=== PATIENT | male | born 1950 | race Caucasian/White ===

== ENCOUNTER 2022-06-13 17:48 | Emergency (ER) | payer OTHER ==
--- OUTSIDE RECORDS SUMMARY | 2022-06-13 17:52 | XMS REPORT | Continuity of Care Document ---
:1950 Author Organization [facility] t Address [address] [place] [address] [address]. [address] [place] [address] Care Team Providers Name Role Phone Sebastian Herron Attending Clinician Unavailable River Simpson Attending Clinician Payers Payer Name Policy Type Policy Number Effective Date Expiration Date [place] [address] [id number] Common HEALTHCARE [facility] - [facility] Problems Condition Condition Condition Status Onset Resolution Last Treating Co mments Source Name Details Category Date Date Treatment Clinician Date [id number] Acute pain Problem C ommon of right Spirit knee - [facility] [id number] Complex Problem Commo n tear of Spirit lateral - [facility] meniscus [facility] of right [facility] knee as Medical current Center injury, subsequent encounter [id number] Sprain of Problem Co mmon [id number] medial Spirit collateral - [facility] ligament [facility] of right [facility] knee, Medical subsequent Center encounter [id number] Closed Problem Common fracture Spirit of right - [facility] tibial St plateau [facility] with Medical routine Center healing, subsequent encounter [id number] 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[facility] joints, St unspecifie [facility] d Medical osteoarthr Center itis type [id number] Unspecifie Problem Com mon d urinary Spirit incontinen - [facility] ce [facility] [id number] Full Problem Commo n [id number] incontinen Spirit ce of - [facility] feces [facility] [id number] Pain, [place] [id number] joint, Spirit knee, - [facility] right [facility] Allergies, Adverse Reactions, Alerts Allergy Allergy Status Severity Reaction(s) Onset Inactive Treating Comm ents Source Name Type Date Date Clinician penicill penicill Active Unknown Commo n in V in V [facility] Social History Social Habit Start Date Stop Date Quantity Comments Source History of Tobacco Use Co mmon [facility] Sex Assigned At Com mon [facility] Smoking Status Start Date Stop Date Source Former Smoker 2022-04-24 00:00:00 2022-04-24 00:00:00 Common S pirit [facility] Medications Ordered Filled Start Stop Current Ordering Indication Dosage Frequency Signature Comments Components Source Medication Medication Date Date Medication? Clinician (SIG) Name Name Lisinopril Lisinopril No Lisinopril 20 MG 20 MG 20 MG Tumersaid Tumersaid No Tumersaid Melatonin Melatonin No 1{table QD Melatonin 10 MG 10 MG t_at_be 10 MG dtime_a s_neede d} Lisinopril Lisinopril No 1{table BID Lisinopril 20 MG 20 MG t} 20 MG Lisinopril Lisinopril No Lisinopril 20 MG 20 MG 20 MG Tumersaid Tumersaid No Tumersaid diphenhydrA diphenhydrA No 2{table QD diphenhydr MINE HCl 25 MINE HCl 25 ts_at_b AMINE HCl MG MG edtime_ 25 MG as_need ed} Loperamide Loperamide No Loperamide HCl HCl HCl diphenhydrA diphenhydrA No 2{table QD diphenhydr MINE HCl 25 MINE HCl 25 ts_at_b AMINE HCl MG MG edtime_ 25 MG as_need ed} Lisinopril Lisinopril No Lisinopril 20 MG 20 MG 20 MG Lisinopril Lisinopril No 1{table BID Lisinopril 20 MG 20 MG t} 20 MG Tumersaid Tumersaid No Tumersaid Melatonin Melatonin No 1{table QD Melatonin 10 MG 10 MG t_at_be 10 MG dtime_a s_neede d} Loperamide Loperamide No Loperamide HCl HCl HCl diphenhydrA diphenhydrA No 2{table QD diphenhydr MINE HCl 25 MINE HCl 25 ts_at_b AMINE HCl MG MG edtime_ 25 MG as_need ed} Lisinopril Lisinopril No Lisinopril 20 MG 20 MG 20 MG Lisinopril Lisinopril No 1{table BID Lisinopril 20 MG 20 MG t} 20 MG Tumersaid Tumersaid No Tumersaid Melatonin Melatonin No 1{table QD Melatonin 10 MG 10 MG t_at_be 10 MG dtime_a s_neede d} Loperamide Loperamide No Loperamide HCl HCl HCl diphenhydrA diphenhydrA No 2{table QD diphenhydr MINE HCl 25 MINE HCl 25 ts_at_b AMINE HCl MG MG edtime_ 25 MG as_need ed} Lisinopril Lisinopril No Lisinopril 20 MG 20 MG 20 MG Lisinopril Lisinopril No 1{table BID Lisinopril 20 MG 20 MG t} 20 MG Tumersaid Tumersaid No Tumersaid Melatonin Melatonin No 1{table QD Melatonin 10 MG 10 MG t_at_be 10 MG dtime_a s_neede d} Loperamide Loperamide No Loperamide HCl HCl HCl diphenhydrA diphenhydrA No 2{table QD diphenhydr MINE HCl 25 MINE HCl 25 ts_at_b AMINE HCl MG MG edtime_ 25 MG as_need ed} Melatonin Melatonin No 1{table QD Melatonin 10 MG 10 MG t_at_be 10 MG dtime_a s_neede d} Tumersaid Tumersaid No Tumersaid Lisinopril Lisinopril No Lisinopril 20 MG 20 MG 20 MG Lisinopril Lisinopril No 1{table BID Lisinopril 20 MG 20 MG t} 20 MG Loperamide Loperamide No Loperamide HCl HCl HCl diphenhydrA diphenhydrA No 2{table QD diphenhydr MINE HCl 25 MINE HCl 25 ts_at_b AMINE HCl MG MG edtime_ 25 MG as_need ed} Melatonin Melatonin No 1{table QD Melatonin 10 MG 10 MG t_at_be 10 MG dtime_a s_neede d} Tumersaid Tumersaid No Tumersaid Lisinopril Lisinopril No Lisinopril 20 MG 20 MG 20 MG Lisinopril Lisinopril No 1{table BID Lisinopril 20 MG 20 MG t} 20 MG Loperamide Loperamide No Loperamide HCl HCl HCl Lisinopril Lisinopril No Lisinopril 20 MG 20 MG 20 MG Tumersaid Tumersaid No Tumersaid Loperamide Loperamide No Loperamide HCl HCl HCl diphenhydrA diphenhydrA No 2{table QD diphenhydr MINE HCl 25 MINE HCl 25 ts_at_b AMINE HCl MG MG edtime_ 25 MG as_need ed} Lisinopril Lisinopril No 1{table BID Lisinopril 20 MG 20 MG t} 20 MG Melatonin Melatonin No 1{table QD Melatonin 10 MG 10 MG t_at_be 10 MG dtime_a s_neede d} Lisinopril Lisinopril No BID Lisinopril 20 MG 20 MG 20 MG Tumersaid Tumersaid No Tumersaid Loperamide Loperamide No Loperamide HCl HCl HCl diphenhydrA diphenhydrA No 2{table QD diphenhydr MINE HCl 25 MINE HCl 25 ts_at_b AMINE HCl MG MG edtime_ 25 MG as_need ed} Lisinopril Lisinopril No 1{table BID Lisinopril 20 MG 20 MG t} 20 MG Melatonin Melatonin No 1{table QD Melatonin 10 MG 10 MG t_at_be 10 MG dtime_a s_neede d} Melatonin Melatonin No 1{table QD Melatonin 10 MG 10 MG t_at_be 10 MG dtime_a s_neede d} Lisinopril Lisinopril No 1{table BID Lisinopril 20 MG 20 MG t} 20 MG diphenhydrA diphenhydrA No 2{table QD diphenhydr MINE HCl 25 MINE HCl 25 ts_at_b AMINE HCl MG MG edtime_ 25 MG as_need ed} Lisinopril Lisinopril No Lisinopril 20 MG 20 MG 20 MG Tumersaid Tumersaid No Tumersaid Loperamide Loperamide No Loperamide HCl HCl HCl Melatonin Melatonin No 1{table QD Melatonin 10 MG 10 MG t_at_be 10 MG dtime_a s_neede d} Lisinopril Lisinopril No Lisinopril 20 MG 20 MG 20 MG Loperamide Loperamide No Loperamide HCl HCl HCl Tumersaid Tumersaid No Tumersaid diphenhydrA diphenhydrA No 2{table QD diphenhydr MINE HCl 25 MINE HCl 25 ts_at_b AMINE HCl MG MG edtime_ 25 MG as_need ed} Melatonin Melatonin No 1{table QD Melatonin 10 MG 10 MG t_at_be 10 MG dtime_a s_neede d} Lisinopril Lisinopril No 1{table BID Lisinopril 20 MG 20 MG t} 20 MG Lisinopril Lisinopril No Lisinopril 20 MG 20 MG 20 MG Loperamide Loperamide No Loperamide HCl HCl HCl Tumersaid Tumersaid No Tumersaid diphenhydrA diphenhydrA No 2{table QD diphenhydr MINE HCl 25 MINE HCl 25 ts_at_b AMINE HCl MG MG edtime_ 25 MG as_need ed} Loperamide Loperamide No Loperamide HCl HCl HCl diphenhydrA diphenhydrA No 2{table QD diphenhydr MINE HCl 25 MINE HCl 25 ts_at_b AMINE HCl MG MG edtime_ 25 MG as_need ed} Lisinopril Lisinopril No 1{table BID Lisinopril 20 MG 20 MG t} 20 MG Melatonin Melatonin No 1{table QD Melatonin 10 MG 10 MG t_at_be 10 MG dtime_a s_neede d} Lisinopril Lisinopril No Lisinopril 20 MG 20 MG 20 MG Tumersaid Tumersaid No Tumersaid Melatonin Melatonin Yes Sebastian 1 tablet Common Herron at bedtime Spirit as needed - [facility] DiphenhydrA DiphenhydrA Yes Sebastian 2 tablets Common MINE HCl MINE HCl Herron at bedtime Spirit as needed [facility] Tumersaid Tumersaid Yes Sebastian not Com mon Herron defined [facility] Amlodipine Amlodipine Yes Sebastian 1 tablet Common Besylate Besylate Herron [facility] Lisinopril Lisinopril Yes Sebastian 1 tablet Common Herron [facility] Loperamide Loperamide No Loperamide HCl HCl HCl diphenhydrA diphenhydrA No 2{table QD diphenhydr MINE HCl 25 MINE HCl 25 ts_at_b AMINE HCl MG MG edtime_ 25 MG as_need ed} Lisinopril Lisinopril No 1{table BID Lisinopril 20 MG 20 MG t} 20 MG Melatonin Melatonin No 1{table QD Melatonin 10 MG 10 MG t_at_be 10 MG dtime_a s_neede d} Immunizations Ordered Immunization Filled Immunization Date Status Commen ts Source Name Name FluAD FluAD 2020-01-06 Completed [facility] 10::00 - [facility] FluAD FluAD 2020-01-06 Completed [facility] 10:: - [facility] FluAD FluAD 2020-01-06 Completed [facility] 10:: - [facility] FluAD FluAD 2020-01-06 Completed [facility] 10:: - [facility] FluAD FluAD 2020-01-06 Completed [facility] 10::00 - [facility] FluAD FluAD 2020-01-06 Completed [facility] 10::00 - [facility] FluAD FluAD 2020-01-06 Completed [facility] 10:: [facility] FluAD FluAD 2020-01-06 Completed [facility] 10:: - [facility] FluAD FluAD 2020-01-06 Completed [facility] 10::00 - [facility] FluAD FluAD 2020-01-06 Completed [facility] 10:: - [facility] FluAD FluAD 2020-01-06 Completed [facility] 10:25:00 [facility] FluAD FluAD 2020-01-06 Completed [facility] 10:25:00 - [facility] FluAD FluAD 2020-01-06 Completed [facility] 10:25:00 - [facility] Vital Signs Vital Name Observation Time Observation Value Comments Source height 2022-04-24 09:30:00 68 [in_i] Common pirit [facility] weight 2022-04-24 09:30:00 230 [lb_av] Common S pirit [facility] temperature 2022-04-24 09:30:00 97.3 [degF] [facility] bmi 2022-04-24 09:30:00 34.97 kg/m2 [facility] blood pressure 2022-04-24 09:30:00 132 mm[Hg] Common Spirit - systolic [facility] blood pressure 2022-04-24 09:30:00 80 mm[Hg] [facility] - diastolic [facility] height 2022-02-04 08:00:00 68 [in_i] Common S pirit [facility] weight 2022-02-04 08:00:00 275 [lb_av] Common S pirit [facility] temperature 2022-02-04 08:00:00 97.4 [degF] Common S pirit [facility] bmi 2022-02-04 08:00:00 41.81 kg/m2 Common S pirit [facility] blood pressure 2022-02-04 08:00:00 134 mm[Hg] Common Spirit - systolic [facility] blood pressure 2022-02-04 08:00:00 76 mm[Hg] [facility] - diastolic [facility] height 2021-12-17 08:00:00 68 [in_i] Common S pirit [facility] weight 2021-12-17 08:00:00 275 [lb_av] [facility] temperature 2021-12-17 08:00:00 97.6 [degF] Common S pirit [facility] bmi 2021-12-17 08:00:00 41.81 kg/m2 Common S pirit - [facility] blood pressure 2021-12-17 08:00:00 136 mm[Hg] Common Spirit - systolic [facility] blood pressure 2021-12-17 08:00:00 80 mm[Hg] [facility] - diastolic [facility] height 2021-11-28 11:00:00 68 [in_i] Common S pirit - [facility] weight 2021-11-28 11:00:00 275 [lb_av] Common S pirit - [facility] bmi 2021-11-28 11:00:00 41.81 kg/m2 Common S pirit - [facility] blood pressure 2021-11-28 11:00:00 134 mm[Hg] Common Spirit - systolic [facility] blood pressure 2021-11-28 11:00:00 70 mm[Hg] Common Spirit - diastolic [facility] height 2021-11-09 08:00:00 68 [in_i] Common S pirit - [facility] weight 2021-11-09 08:00:00 275 [lb_av] Common S pirit - [facility] bmi 2021-11-09 08:00:00 41.81 kg/m2 Common S pirit - [facility] blood pressure 2021-11-09 08:00:00 135 mm[Hg] Common Spirit - systolic [facility] blood pressure 2021-11-09 08:00:00 71 mm[Hg] [facility] Spirit - diastolic [facility] height 2021-05-07 08:00:00 68 [in_i] Common S pirit - [facility] weight 2021-05-07 08:00:00 273 [lb_av] Common S pirit - [facility] temperature 2021-05-07 08:00:00 97.3 [degF] Common S pirit - [facility] bmi 2021-05-07 08:00:00 41.5 kg/m2 Common S pirit - [facility] blood pressure 2021-05-07 08:00:00 134 mm[Hg] Common Spirit - systolic [facility] blood pressure 2021-05-07 08:00:00 70 mm[Hg] Common [facility] - diastolic [facility] Procedures This patient has no known procedures. Encounters Start End Encounter Admission Attending Care Care Encounter Source Date/Time Date/Time Type Type Clinicians Facility Department ID 2022-04-24 Outpatient Herron, STLMLC STLMLC [id number] Common 13:24:01 Sebastian [id number] [facility] 2022-04-23 Outpatient Herron, STLMLC STLMLC [id number] Common 09:20:01 Sebastian [id number] [facility] 2021-11-09 Outpatient Herron, STLMLC STLMLC [id number] Common 09:10:01 Sebastian [facility] 2021-05-16 Outpatient Herron, STLMLC STLMLC [id number] Common 12:40:35 Sebastian [id number] [facility] 2021-05-16 Outpatient Herron, STLMLC STLMLC [id number] Common 11:58:21 Sebastian [id number] [facility] 2021-05-16 Outpatient Herron, STLMLC STLMLC [id number] Common 11:29:46 Sebastian 40025 [facility] 2021-05-16 Outpatient Herron, STLMLC STLMLC [id number] Common 11:21:01 Sebastian [id number] [facility] 2022-04-30 2022-04-30 (TEL) STLMLC STLMLC [id number] Co mmon 00:00:00 00:00:00 [facility] 2022-04-24 2022-04-24 OFFICE STLMLC STLMLC [id number] Co mmon 00:00:00 00:00:00 VISIT [facility] LEVEL 4 [facility] 2022-02-06 2022-02-06 (TEL) STLMLC STLMLC [id number] Co mmon 00:00:00 00:00:00 [facility] 2022-02-04 2022-02-04 OFFICE STLMLC STLMLC [id number] Co mmon 00:00:00 00:00:00 VISIT EST Spir it PT LEVEL 3 [facility] 2022-01-29 2022-01-30 Outpatient nullFlavo MNA [id number] Memoria 13:15:00 04:59:59 r Neurology 00 l Boones Milldanny Elias 2022-01-29 2022-01-29 Outpatient Kre, MISCHER MISCHER [id number] 08:15:00 23:59:59 River 00 Jacob 2022-01-29 2022-01-29 Outpatient MHIE IE [id number] Memoria 08:15:00 08:15:00 00 l Curt 2021-12-25 2021-12-25 (TEL) STLMLC STLMLC [id number] Co mmon 00:00:00 00:00:00 [facility] 2021-12-18 2021-12-18 (TEL) STLMLC STLMLC [id number] Co mmon 00:00:00 00:00:00 [facility] 2021-12-17 2021-12-17 OFFICE STLMLC STLMLC [id number] Co mmon 00:00:00 00:00:00 VISIT EST Spir it PT LEVEL 3 [facility] 2021-11-28 2021-11-28 OFFICE STLMLC STLMLC [id number] Co mmon 00:00:00 00:00:00 VISIT EST Spir it PT LEVEL 3 [facility] 2021-11-13 2021-11-13 (TEL) STLMLC STLMLC [id number] Co mmon 00:00:00 00:00:00 [facility] 2021-11-09 2021-11-09 OFFICE STLMLC STLMLC [id number] Co mmon 00:00:00 00:00:00 VISIT EST Spir it PT LEVEL 3 [facility] 2021-11-06 2021-11-06 (TEL) STLMLC STLMLC [id number] Co mmon 00:00:00 00:00:00 [facility] 2021-11-05 2021-11-05 (TEL) STLMLC STLMLC [id number] Co mmon 00:00:00 00:00:00 [facility] 2021-05-07 2021-05-07 OFFICE STLMLC STLMLC [id number] Co mmon 00:00:00 00:00:00 VISIT [facility] LEVEL 4 [facility] 2020-11-09 2020-11-09 Outpatient STLMLC STLMLC [id number] Common 00:00:00 00:00:00 [facility] 2020-11-08 2020-11-08 Outpatient STLMLC STLMLC [id number] Common 00:00:00 00:00:00 [facility] 2020-11-08 2020-11-08 Outpatient STLMLC STLMLC [id number] Common 00:00:00 00:00:00 [facility] 2020-07-11 2020-07-11 Outpatient STLMLC STLMLC [id number] Common 00:00:00 00:00:00 [facility] 2020-04-12 2020-04-12 Outpatient STLMLC STLMLC [id number] Common 00:00:00 00:00:00 [facility] 2020-02-14 2020-02-14 Outpatient STLMLC STLMLC [id number] Common 00:00:00 00:00:00 [facility] 2020-01-17 2020-01-17 Outpatient STLMLC STLMLC [id number] Common 00:00:00 00:00:00 [facility] 2019-12-16 2019-12-16 [id number] Common 13:10:00 13:10:[address] [facility] 2019-11-24 2019-11-24 [facility] [id number] Common 11:16:00 11:16:[address] Sp[address] [facility] 2019-10-27 2019-10-27 [facility] [id number] Common 13:40:00 13:40:00 t [facility] it Road [facility] 2019-10-18 2019-10-18 Out[facility] [id number] Common 11:18:00 11:18:00 [address] [place] [address] Sp[address] [facility] 2019-09-30 2019-09-30 [facility] [id number] Common 08:15:00 08:15:00 [address] [place] [address] Sp[address] [facility] 2019-09-30 2019-09-30 [facility] [id number] Common 08:00:00 08:00:[address] Sp[address] [facility] 2019-08-26 2019-08-26 [facility] [id number] Common 15:00:00 15:00:00 [facility] Results This patient has no known results.
--- NOTE | 2022-06-13 18:51 | RAD REPORT ---
EXAM DESCRIPTION: US - Extremity Venous Uni Ltd - 06/13/2022 6:44 pm CLINICAL HISTORY: Pain and swelling COMPARISON: None. TECHNIQUE: Real-time sonographic evaluation of the left lower extremity deep venous system was perfo rmed. FINDINGS: Normal compressibility, flow augmentation, phasic flow and spontaneous flow is identified in the left lower extremity deep venous system. No intraluminal filling defects seen. IMPRESSION: No DVT in the left lower extremity.
--- NOTE | 2022-06-13 19:01 | ER ---
Nurse's Notes [facility] Name: Drew Boles Age: 71 yrs Sex: Male : 1950 Arrival Date: 06/13/2022 Time: 17:50 Bed 5 Private MD: Sebastian Herron Diagnosis: Pain in left lower leg Presentation: 06/13 17:56 Chief complaint: Patient states: L calf pain and swelling x 1 week. Denies SOB. ss Coronavirus screen: Client denies travel out of the [place] in the last 14 days. Ebola Screen: Patient denies exposure to infectious person. Patient denies travel to an Ebola-affected area in the 21 days before illness onset. Initial Sepsis Screen: Does the patient meet any 2 criteria? No. Patient's initial sepsis screen is negative. Does the patient have a suspected source of infection? No. Patient's initial sepsis screen is negative. Risk Assessment: Do you want to hurt yourself or someone else? Patient reports no desire to harm self or others. Onset of symptoms was June 07, 2022. 17:56 Method Of Arrival: Wheelchair ss 17:56 Acuity: COLLEEN 3 ss Historical: - Allergies: 17:57 Iodinated Contrast Media - IV Dye; ss 17:57 Aspirin; ss 17:57 PENICILLINS; ss - PMHx: 17:57 Hypertensive disorder; Polio; ss - Immunization history:: Client reports receiving the 2nd dose of the Covid vaccine. - Social history:: Smoking status: Patient denies any tobacco usage or history of. Screenin:47 [facility] ED Fall Risk Assessment (Adult) Impaired Gait Yes (1 pt) Mobility Assist ll1 Device Used Yes (1 pt) Score/Fall Risk Level 0 - 2 = Low Risk Oriented to surroundings, Maintained a safe environment, Educated pt \T\ family on fall prevention, incl call for assistance when getting out of bed, Hourly rounding (assess needs \T\ fall precautionary measures) done. Abuse screen: Denies threats or abuse. Nutritional screening: No deficits noted. Tuberculosis screening: No symptoms or risk factors identified. Assessment: 18:47 General: Appears in no apparent distress. Behavior is calm, cooperative, appropriate ll1 for age. Pain: Complains of pain in left leg Quality of pain is described as aching. Musculoskeletal: Circulation, motion, and sensation intact. Capillary refill < 3 seconds, Reports pain in left leg. 19:03 Reassessment: No changes from previously documented assessment. Patient and/or family ll1 updated on plan of care and expected duration. Pain level reassessed. Patient is alert, oriented x 3, equal unlabored respirations, skin warm/dry/pink. Vital Signs: 17:57 BP 119 / 68; Pulse 86; Resp 16; Temp 97.9(TE); Pulse Ox 98% on R/A; Pain 3/10; ss ED Course: 17:50 Patient arrived in ED. as 17:51 Sebastian Herron DO is Private Physician. as 17:52 Diego Feliz PA is PHCP. [facility] 17:52 Taran Hendrix DO is Attending Physician. [facility] 17:57 Triage completed. ss 17:57 Arm band placed on left wrist. ss 18:46 Shyann Rome, RN is Primary Nurse. ll1 18:47 Patient placed in an exam room, on a stretcher. ll1 18:48 Patient has correct armband on for positive identification. Bed in low position. Call ll1 light in reach. Side rails up X2. Cardiac monitoring not applicable on this patient. 19:03 No provider procedures requiring assistance completed. Patient did not have IV access ll1 during this emergency room visit. Administered Medications: No medications were administered Medication: 18:48 VIS not applicable for this client. ll1 Outcome: 19:00 Discharge ordered by . [facility] 19:03 Discharged to home via wheelchair. ll1 19:03 Condition: stable 19:03 Discharge instructions given to patient, Instructed on discharge instructions, follow up and referral plans. Demonstrated understanding of instructions, follow-up care. 19:04 Patient left the ED. 1 Signatures: Diego Feliz PA PA jmm Martinez, Amelia as Smirch, Shelby, RN RN Shyann Rome RN RN 1
--- NOTE | 2022-06-13 19:01 | EDPHYS ---
Physician Documentation [facility] Name: Drew Boles Age: 71 yrs Sex: Male : 1950 Arrival Date: 06/13/2022 Time: 17:50 Bed 5 Private MD: Lady Herronh ED Physician Taran Hendrix HPI: 06/13 17:57 This 71 yrs old Male presents to ER via Wheelchair with complaints of Leg Swelling, Leg jmm Pain. 17:57 The patient presents with pain. Onset: The symptoms/episode began/occurred gradually, jmm 1.5 week(s) ago. Modifying factors: The symptoms are alleviated by nothing. the symptoms are aggravated by nothing. Associated signs and symptoms: Pertinent negatives chest pain, shortness of breath, fever. The patient has experienced a previous episode, hx of dvt. Historical: - Allergies: 17:57 Iodinated Contrast Media - IV Dye; ss 17:57 Aspirin; ss 17:57 PENICILLINS; ss - PMHx: 17:57 Hypertensive disorder; Polio; ss - Immunization history:: Client reports receiving the 2nd dose of the Covid vaccine. - Social history:: Smoking status: Patient denies any tobacco usage or history of. ROS: 17:57 Constitutional: Negative for fever, chills, and weight loss, Cardiovascular: Negative jmm for chest pain, palpitations, and edema, Respiratory: Negative for shortness of breath, cough, wheezing, and pleuritic chest pain. 17:57 MS/extremity: Positive for swelling. 17:57 All other systems are negative. Exam: 17:57 Constitutional: This is a well developed, well nourished patient who is awake, alert, jmm and in no acute distress. Head/Face: atraumatic. Eyes: EOMI, no conjunctival erythema appreciated ENT: Moist Mucus Membranes Neck: Trachea midline, Supple Chest/axilla: Normal chest wall appearance and motion. Cardiovascular: Regular rate and rhythm. No edema appreciated Respiratory: Normal respirations, no respiratory distress appreciated Abdomen/GI: Non distended Back: Normal ROM Skin: General appearance color normal 17:57 Musculoskeletal/extremity: no swelling appreciated to the left lower extremity, compartments are soft, NVI. 17:57 Skin: Appearance: Color: normal in color. 17:57 Neuro: Orientation: is normal, Mentation: is normal, appropriate for stated age, Memory: is normal. 17:57 Psych: Behavior/mood is pleasant, cooperative. Vital Signs: 17:57 BP 119 / 68; Pulse 86; Resp 16; Temp 97.9(TE); Pulse Ox 98% on R/A; Pain 3/10; ss MDM: 17:57 Patient medically screened. [facility] 18:57 Differential diagnosis: dvt, lower leg pain, strain. Data reviewed: vital signs, nurses [facility] notes. Counseling: I had a detailed discussion with the patient and/or guardian regarding: the historical points, exam findings, and any diagnostic results supporting the discharge/admit diagnosis, radiology results, to return to the emergency department if symptoms worsen or persist or if there are any questions or concerns that arise at home. 06/13 17:58 Order name: Extremity Venous Unilateral Ltd [facility] 06/13 18:51 Order name: ; Complete Time: 18:57 EDMS Administered Medications: No medications were administered Disposition Summary: 06/13/22 19:00 Discharge Ordered Location: Home [facility] Condition: Stable [facility] Diagnosis - Pain in left lower leg [facility] Followup: [facility] - With: Private Physician - When: 2 - 3 days - Reason: Recheck today's complaints, Continuance of care, Re-evaluation by your physician Discharge Instructions: - Discharge Summary Sheet [facility] - Musculoskeletal Pain [facility] Forms: - Medication Reconciliation Form [facility] - Thank You Letter [facility] - Antibiotic Education [facility] - Prescription Opioid Use [facility] Addendum: 06/17/2022 11:23 Co-signature as Attending Physician, Taran Hendrix DO I was immediately available on-site m s3 in the Emergency Department for consultation in the care of the patient. Signatures: Dispatcher [employer] EDMS Diego Feliz PA PA jmm Smirch, Shelby, RN RN Taran Ely DO DO ms3
== END 2022-06-13 19:04 | disposition home or self-care (01) ==
LOC: ER 17:48
DX: M79.662 Pain in left lower leg (principal); I10 Essential (primary) hypertension; Z88.0 Allergy status to penicillin; Z88.6 Allergy status to analgesic agent; Z91.041 Radiographic dye allergy status
CPT/HCPCS: 93971; 99281

== ENCOUNTER 2023-08-13 11:41 | Observation (INO) | payer OTHER ==
--- NOTE | 2023-08-13 12:54 | RAD REPORT ---
EXAM DESCRIPTION: RAD - Pelvis - 08/13/2023 12:39 pm CLINICAL HISTORY: PAIN COMPARISON: MRI PELVIS W O CONTRAST dated 03/22/2010 TECHNIQUE: Single AP view of the pelvis. FINDINGS: The visualized pelvic ring is intact. No suspicious osseous lesions. Lzog-ir-qoqakrck bila teral hip joint degenerative changes. García rods in place with screw fixation across the sacroil iac joints. Other pelvic joints are unremarkable. Visualized aspects of the abdomen and soft tissues are unremarkable. IMPRESSION: No acute osseous abnormality of the bony pelvis. Sfsg-ac-fadyxjhj bilateral hip joint de generative changes.
--- NOTE | 2023-08-13 12:59 | RAD REPORT ---
EXAM DESCRIPTION: RAD - Femur Right - 08/13/2023 12:39 pm CLINICAL HISTORY: PAIN COMPARISON: Tib Fib Right dated 08/13/2023; Knee Left 3 View dated 08/13/2023; Ankle Right 3 View date d 08/13/2023; Ankle Left 3 View dated 08/13/2023 TECHNIQUE: Right femur, 2 views. FINDINGS: Oblique mildly displaced fractures along the proximal tibia and fibula, better characteriz ed on the tib/fib radiographs of the same day. There is no dislocation or periosteal reaction noted. No acute or suspicious bony finding. IMPRESSION: Oblique mildly displaced fractures of the proximal tibia fibula.
--- NOTE | 2023-08-13 13:01 | RAD REPORT ---
EXAM DESCRIPTION: RAD - Tib Fib Right - 08/13/2023 12:39 pm CLINICAL HISTORY: PAIN COMPARISON: No comparisons TECHNIQUE: Right tibia and fibula, 2 views. FINDINGS: Oblique mildly displaced fractures of the proximal tibia and fibula. The tibial fracture l ine courses anteriorly just above the tibial tuberosity. The fibular fracture line courses superiorly and may be involving the proximal articular surface. There is no dislocation or periosteal reaction noted. No acute or suspicious bony finding. No foreign body or other soft tissue abnormality. IMPRESSION: Oblique mildly displaced fractures of the proximal tibia and fibula.
--- NOTE | 2023-08-13 13:03 | RAD REPORT ---
EXAM DESCRIPTION: RAD - Ankle Left 3 View - 08/13/2023 12:39 pm CLINICAL HISTORY: PAIN COMPARISON: No comparisons TECHNIQUE: Left ankle, 3 views. FINDINGS: Corticated mildly displaced midshaft fibular fracture. Deformity at the head of the talus, likely chronic as well. No dislocation or periosteal reaction. No joint effusion seen. No joint spac e narrowing. Calcifications along the posterior muscles of the and Achilles tendon. 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 Deformity of the head of the talus l ikely chronic as well.
--- NOTE | 2023-08-13 13:15 | RAD REPORT ---
EXAM DESCRIPTION: RAD - Ankle Right 3 View - 08/13/2023 12:39 pm CLINICAL HISTORY: PAIN COMPARISON: Ankle Left 3 View dated 08/13/2023 TECHNIQUE: Right ankle, 3 views. FINDINGS: No acute fracture, dislocation or periosteal reaction. Corticated fracture/ deformity at t he base of the medial malleolus. Mild deformity at the dome of the talus as well. No joint effusion s een. No joint space narrowing. Soft tissue swelling about the ankle anteriorly. IMPRESSION: No acute osseus abnormality. Anterior ankle soft tissue swelling. Chronic findings as ab ove.
--- NOTE | 2023-08-13 13:16 | RAD REPORT ---
EXAM DESCRIPTION: RAD - Knee Left 3 View - 08/13/2023 12:39 pm CLINICAL HISTORY: PAIN COMPARISON: No comparisons TECHNIQUE: Left knee, 3 views. FINDINGS: No fracture, dislocation or periosteal reaction. Pinning hardware at the tibial tuberosity , with chronic deformity along the tibial metaphysis lateral cortex. Chronic appearing nonunited frac ture at the midshaft fibula. Ybtq-hr-hjfoqtij joint effusion seen. Moderate degenerative changes with subchondral sclerosis and joint space loss laterally. No soft tissue abnormality. Clinical concerns for internal derangement or occult bony injury could be further assessed with MR im aging. IMPRESSION: No acute osseus abnormality. Qnxq-zz-cqfauxff joint effusion. Chronic findings as above.
[2023-08-13] MEDS ORDERED: MORPHINE 4 MG/ML SYR ONE (13:59)
--- NOTE | 2023-08-13 15:13 | RAD REPORT ---
EXAM DESCRIPTION: CT Knee Right Wo Cont CLINICAL HISTORY: trauma COMPARISON: Tib Fib Right dated 08/13/2023 TECHNIQUE: Axial noncontrast thin cut CT images of the right knee were obtained. Multiplanar reform ats were generated and reviewed. All CT scans are performed using dose optimization technique as appropriate and may include automated exposure control or mA/KV adjustment according to patient size. FINDINGS: Mildly comminuted and displaced fracture of the proximal tibia. Major fracture line is obl ique, coursing from just above the level of the tibial tuberosity posteriorly towards the medial post erior cortex. Mild comminution at the level of the tibial tuberosity. Subtle cortical depression jourdan g the posterior peripheral aspect of the lateral tibial plateau, may relate to a subtle depressed fra cture component, with the depression measuring 1-2 mm. Comminuted mildly displaced fracture of the proximal fibula. Fracture line extends to the articular s urface of the proximal tibiofibular joint, as best appreciated on series 204, image 32. The proximal tibiofibular articulation is otherwise well aligned. Pronounced soft tissue swelling along the antro lateral aspect of the lower leg. Few elements of soft tissue gas anterior and medial to the tibial tuberosity, please correlate for presence of a lacerati on. Mild suprapatellar joint effusion. Pronounced muscle atrophy of the included lower aspects of the thigh and upper lower leg. IMPRESSION: Mildly comminuted displaced fractures of the proximal tibia and fibula as above. Fibular fracture line extends to the articular surface of the proximal tibia-fibular joint. Suspected subtle depressed fracture along the peripheral lateral tibial plateau. Other findings as above.
--- NOTE | 2023-08-13 16:07 | ER ---
Nurse's Notes [facility] Name: Drew Boles Age: 72 yrs Sex: Male : 1950 Arrival Date: 08/13/2023 Time: 11:41 Bed 2 Private MD: Diagnosis: Mechanical fall;Fracture to proximal right tibia and fibula Presentation: 08/12 11:50 Chief complaint: EMS states: "Fell when transferring from vehicle to wheelchair, rs5 complains of right leg pain". 11:50 Coronavirus screen: At this time, the client does not indicate any symptoms associated rs5 with coronavirus-19. Ebola Screen: No symptoms or risks identified at this time. Initial Sepsis Screen: Does the patient meet any 2 criteria? No. Patient's initial sepsis screen is negative. Does the patient have a suspected source of infection? No. Patient's initial sepsis screen is negative. Risk Assessment: Do you want to hurt yourself or someone else? Patient reports no desire to harm self or others. Onset of symptoms was August 13, 2023. 11:50 Method Of Arrival: EMS: [facility] rs5 11:50 Acuity: COLLEEN 3 rs5 11:51 Care prior to arrival: Medication(s) given: 30 mg Toradol IM to left deltoid. rs5 Historical: - Allergies: 11:58 Aspirin; rs5 11:58 Iodinated Contrast Media - IV Dye; rs5 11:58 PENICILLINS; rs5 - PMHx: 11:58 Polio; Hypertensive disorder; rs5 - PSHx: 11:58 Right leg surgery (Hypertensive disorder); back surgery (Hypertensive disorder); rs5 - Immunization history:: Adult Immunizations up to date. - Infectious Disease History:: Denies. - Social history:: Smoking status: Patient denies any tobacco usage or history of. - Family history:: not pertinent. Screenin:[facility] ED Fall Risk Assessment (Adult) History of falling in the last 3 months, rs5 including since admission Yes- single mechanical fall (1 pt) Confusion or Disorientation No (0 pts) Intoxicated or Sedated No (0 pts) Impaired Gait Yes (1 pt) Mobility Assist Device Used Yes (1 pt) Altered Elimination No (0 pt) Score/Fall Risk Level 3 or more points = High Risk Oriented to surroundings, Maintained a safe environment, Hourly rounding (assess needs \\T\\ fall precautionary measures) done. Abuse screen: Denies threats or abuse. Nutritional screening: No deficits noted. Tuberculosis screening: No symptoms or risk factors identified. Assessment: 11:50 General: Appears in no apparent distress. uncomfortable, Behavior is calm, cooperative. rs5 Pain: Complains of pain in right leg Pain currently is 2 out of 10 on a pain scale. Quality of pain is described as aching, Is continuous. Neuro: Level of Consciousness is awake, alert, obeys commands, Oriented to person, place, time, situation. Cardiovascular: Patient's skin is warm and dry. Rhythm is regular. Respiratory: Airway is patent Respiratory effort is even, unlabored, Respiratory pattern is regular, symmetrical. GI: Abdomen is round non-distended, Abd is soft and non tender X 4 quads. : No signs and/or symptoms were reported regarding the genitourinary system. EENT: No signs and/or symptoms were reported regarding the EENT system. Derm: Skin is intact, Skin is pink, warm \\T\\ dry. Musculoskeletal: Bony deformity noted of right lower leg. 12:43 Reassessment: No changes from previously documented assessment. rs5 14:47 Reassessment: Patient appears in no apparent distress at this time. as6 16:05 Reassessment: Patient and/or family updated on plan of care and expected duration. Pain rs5 level reassessed. Patient is alert, oriented x 3, equal unlabored respirations, skin warm/dry/pink. Patient denies pain at this time. Patient states feeling better. Patient states symptoms have improved. 17:05 Reassessment: No changes from previously documented assessment. rs5 17:57 Reassessment: Patient and/or family updated on plan of care and expected duration. Pain rs5 level reassessed. Patient is alert, oriented x 3, equal unlabored respirations, skin warm/dry/pink. Vital Signs: 11:50 BP 150 / 71; Pulse 72; Resp 18; Temp 97.8(O); Pulse Ox 99% ; rs5 13:00 BP 167 / 89; Pulse 74; Resp 18 S; Pulse Ox 97% on R/A; as6 14:47 BP 138 / 98; Pulse 72; Resp 16 S; Pulse Ox 94% on R/A; as6 15:58 BP 162 / 87; Pulse 76; Resp 18; Pulse Ox 99% on R/A; rs5 17:57 BP 160 / 81; Pulse 73; Resp 17; Pulse Ox 98% on R/A; rs5 ED Course: 11:48 Patient arrived in ED. bd 11:49 Reji Huff MD is Attending Physician. rt 11:50 Patient has correct armband on for positive identification. Placed in gown. Bed in low rs5 position. Call light in reach. Side rails up X2. 11:50 No provider procedures requiring assistance completed. rs5 11:55 Andrés Banerjee, RN is Primary Nurse. rs5 11:57 Triage completed. rs5 12:41 Ankle Left 3 View XRAY In Process Unspecified. EDMS 12:41 Knee Left 3 View XRAY In Process Unspecified. EDMS 12:41 Pelvis XRAY In Process Unspecified. EDMS 12:41 Femur Right XRAY In Process Unspecified. EDMS 12:41 Tib Fib Right XRAY In Process Unspecified. EDMS 12:41 Ankle Right 3 View XRAY In Process Unspecified. EDMS 14:23 Knee Right Wo Cont In Process Unspecified. EDMS 16:06 Maggie Leonard MD is Hospitalizing Provider. rt 17:58 Patient admitted, IV remains in place. rs5 Administered Medications: 14:12 Drug: morphine IM 4 mg IM once Route: IM; Site: left deltoid; rs5 14:32 Follow up: Response: No adverse reaction; Pain is decreased rs5 Medication: 12:44 VIS not applicable for this client. rs5 Outcome: 16:07 Decision to Hospitalize by Provider. rt 17:58 Admitted to Med/surg accompanied by nurse, rs5 17:58 Condition: stable 17:58 Instructed on the need for admit, Demonstrated understanding of instructions, 17:58 Patient left the ED. rs5 Signatures: Dispatcher [employer] EDMS Elayne Jackson Ashby, RN RN as6 Reji Huff MD MD rt Andrés Banerjee, RN RN rs5
--- NOTE | 2023-08-13 16:07 | EDPHYS ---
Physician Documentation [facility] Name: Drew Boles Age: 72 yrs Sex: Male : 1950 Arrival Date: 08/13/2023 Time: 11:41 Bed 2 Private MD: ED Physician Reji Huff HPI: 08/12 16:07 This 72 yrs old Male presents to ER via EMS with complaints of Fall. 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 Fell backwards, getting his right leg caught underneath him. Reports of pain just below his right knee. Reports some mild pain to the left leg as well. Denies hitting his head. Denies other acute complaints, symptoms are moderate in severity, no other aggravating or alleviating factors.. Historical: - Allergies: 11:58 Aspirin; rs5 11:58 Iodinated Contrast Media - IV Dye; rs5 11:58 PENICILLINS; rs5 - PMHx: 11:58 Polio; Hypertensive disorder; rs5 - PSHx: 11:58 Right leg surgery (Hypertensive disorder); back surgery (Hypertensive disorder); rs5 - Immunization history:: Adult Immunizations up to date. - Infectious Disease History:: Denies. - Social history:: Smoking status: Patient denies any tobacco usage or history of. - Family history:: not pertinent. ROS: 16:07 Constitutional: Negative for fever, chills, and weight loss, Cardiovascular: Negative rt for chest pain, palpitations, and edema, Respiratory: Negative for shortness of breath, cough, wheezing, and pleuritic chest pain, Abdomen/GI: Negative for abdominal pain, nausea, vomiting, diarrhea, and constipation, Skin: Negative for injury, rash, and discoloration, Neuro: Negative for headache, weakness, numbness, tingling, and seizure, Psych: Negative for depression, anxiety, suicide ideation, homicidal ideation, and hallucinations, 16:07 MS/extremity: Positive for injury or acute deformity, pain, Exam: 16:07 Constitutional: This is a well developed, well nourished patient who is awake, alert, rt and in no acute distress. Head/Face: Normocephalic, atraumatic. Chest/axilla: Normal chest wall appearance and motion. Nontender with no deformity. No lesions are appreciated. Cardiovascular: Regular rate and rhythm with a normal S1 and S2. No gallops, murmurs, or rubs. Normal PMI, no JVD. No pulse deficits. Respiratory: Lungs have equal breath sounds bilaterally, clear to auscultation and percussion. No rales, rhonchi or wheezes noted. No increased work of breathing, no retractions or nasal flaring. Abdomen/GI: Soft, non-tender, with normal bowel sounds. No distension or tympany. No guarding or rebound. No evidence of tenderness throughout. Skin: Warm, dry with normal turgor. Normal color with no rashes, no lesions, and no evidence of cellulitis. Neuro: Awake and alert, GCS 15, oriented to person, place, time, and situation. Cranial nerves II-XII grossly intact. Motor strength 5/5 in all extremities. Sensory grossly intact. Cerebellar exam normal. Normal gait. 16:07 Musculoskeletal/extremity: Deformity to the right leg just below the knee. Tenderness at that area with swelling. Mild tenderness to bilateral ankles, left knee, no deformities noted. Pulses, motor, sensation intact. Vital Signs: 11:50 BP 150 / 71; Pulse 72; Resp 18; Temp 97.8(O); Pulse Ox 99% ; rs5 13:00 BP 167 / 89; Pulse 74; Resp 18 S; Pulse Ox 97% on R/A; as6 14:47 BP 138 / 98; Pulse 72; Resp 16 S; Pulse Ox 94% on R/A; as6 15:58 BP 162 / 87; Pulse 76; Resp 18; Pulse Ox 99% on R/A; rs5 17:57 BP 160 / 81; Pulse 73; Resp 17; Pulse Ox 98% on R/A; rs5 MDM: 11:49 Patient medically screened. rt 16:07 Differential Diagnosis Fracture, contusion. Data reviewed: vital signs, nurses notes, rt radiologic studies. Consideration of Admission/Observation Patient was admitted/placed on observation. Management of patient was discussed with the following: Termite Helper: Discussed with orthopedics on-call, request nonweightbearing, knee immobilizer, surgery in 7 to 10 days.. Independent interpretation of the following test(s) in the Emergency Department X-Ray: My interpretation is Proximal tibia, fibula fracture seen on interpretation of x-ray images. Care significantly affected by the following chronic conditions: Postpolio syndrome. Counseling: I had a detailed discussion with the patient and/or guardian regarding the historical points, exam findings, and any diagnostic results supporting the discharge/admit diagnosis, radiology results, the need for further work-up and treatment in the hospital. 08/12 16:50 Order name: Basic Metabolic Panel EDPA 08/12 16:50 Order name: Basic Metabolic Panel EDPA 08/12 16:50 Order name: CBC with Automated Diff EDMS 08/12 16:50 Order name: CBC with Automated Diff EDMS 08/12 11:50 Order name: Ankle Left 3 View XRAY; Complete Time: 13:19 rt 08/12 11:50 Order name: Knee Left 3 View XRAY; Complete Time: 13:19 rt 08/12 11:50 Order name: Pelvis XRAY; Complete Time: 13:03 rt 08/12 11:50 Order name: Femur Right XRAY; Complete Time: 13:03 rt 08/12 11:50 Order name: Tib Fib Right XRAY; Complete Time: 13:03 rt 08/12 11:50 Order name: Ankle Right 3 View XRAY; Complete Time: 13:19 rt 08/12 13:56 Order name: Knee Right Wo Cont; Complete Time: 15:18 EDMS 08/12 16:50 Order name: Chest Single View EDPA 08/12 16:50 Order name: Chest Single View EDPA 08/12 16:50 Order name: CONS Physician Consult [facility] 08/12 16:50 Order name: Social Service Consult [facility] 08/12 16:50 Order name: EKG Electrocardiogram [facility] 08/12 16:50 Order name: EKG Electrocardiogram [facility] 08/12 13:51 Order name: Knee Immobilizer: after ct; Complete Time: 17:13 rt Administered Medications: 14:12 Drug: morphine IM 4 mg IM once Route: IM; Site: left deltoid; rs5 14:32 Follow up: Response: No adverse reaction; Pain is decreased rs5 Disposition Summary: 08/13/23 16:07 Hospitalization Ordered Notes: Hospitalization Status: Observation rt Provider: Maggie Leonard rt Location: Telemetry/MedSurg (observation) rt Condition: Stable rt Problem: new rt Symptoms: are unchanged rt Bed/Room Type: Standard rt Room Assignment: 218(08/13/23 17:16) bd Diagnosis - Mechanical fall rt - Fracture to proximal right tibia and fibula rt Forms: - Medication Reconciliation Form rt - SBAR form rt - Leadership Thank You Letter rt Signatures: Dispatcher [employer] EDMS rahelsohail Elayne bd Reji Huff MD MD rt Andrés Banerjee, RN RN rs5 Corrections: (The following items were deleted from the chart) 11:50 11:50 Femur Right+RAD.RAD.BRZ ordered. EDMS EDMS 11:50 11:50 Tib Fib Right+RAD.RAD.BRZ ordered. EDMS EDMS 11:50 11:50 Ankle Right 3 View+RAD.RAD.BRZ ordered. EDMS EDMS 13:56 13:52 CT RIGHT KNEE WO CONTRAST ordered. EDMS EDMS 17:16 16:07 rt bd
[2023-08-13] MEDS ORDERED: DIAZEPAM 5 MG TABLET PO PRN (16:36)
--- NOTE | 2023-08-13 16:36 | P.HP ---
Certification for Inpatient Patient admitted to: Observation With expected LOS: <2 Midnights Patient will require the following post-hospital care: Other (outpatient rehab) Practitioner: I am a practitioner with admitting privileges, knowledge of patient current condition, hospital course, and medical plan of care. Services: Services provided to patient in accordance with Admission requirements found in Title 42 Section 412.3 of the Code of Federal Regulations <Christine Fairbanks Jose - Last Filed: 08/13/23 17:39> Patient History Date of Service: 08/13/23 Reason for admission: tib/fib fracture, difficult mobility 2nd to polio History of Present Illness: Mr. Boles is a 72-year-old male with a past medical history of polio, the sequelae of which affected his mobility. He has had multiple surgeries on his bilateral lower extremities. He lives alone but is very high functioning with a motorized wheelchair that he transfers from to crutches and back to the chair to perform ADLs. He has a van that usually is accessible to him from his chair using crutches. Today however he slipped, causing his legs to buckle and he la nded awkwardly on his folded lower extremities. On evaluation in the emergency department, he has a tib-fib fracture of the right leg. He states his right leg is the stronger of his lower extremities. He was given morphine for pain and the ER physician consulted Dr. Raphael. Dr. Raphael recommended a knee immobilizer, pain control, and follow-up in 1 week. With the increased difficulty in mobilization, it is felt unsafe to send Mr. Boles to his home alone. We will admit him for observation to allow conversation with social work for potential outpatient rehab. Home medications list reviewed: Yes - Past Medical/Surgical History Has patient received pneumonia vaccine in the past: No Diabetic: No -: polio -: HTN -: prostate ca - treated with radiation therapy -: multiple orthopedic surgeries for polio sequelae Psychosocial/ Personal History: Pt lives alone but functions well with special w/c, crutches, adapted van. He however fell while getting into his van and now has fracture of his more dominant leg - Social History Smoking Status: Former smoker Alcohol use: Yes CD- Drugs: No Caffeine use: Yes Place of Residence: Home <Jessica Fairbanksrhona Garcia - Last Filed: 08/13/23 17:39> Date of Service: 08/13/23 <Maggie Leonard - Last Filed: 08/13/23 18:11> Allergies aspirin Allergy (Verified 10/13/19 15:07) Rash Iodinated Contrast Media Allergy (Verified 10/13/19 15:04) Shortness of breath/hypotension/palpitations iodine Allergy (Verified 10/13/19 15:04) Rash Penicillins Allergy (Verified 10/13/19 15:04) Nausea/Vomiting/diarrhea Home Medications: Lisinopril [Zestril] 10 mg PO DAILY 10/13/19 Loperamide [Imodium*] 20 mg PO BID 10/13/19 Turmeric Root Extract [Turmeric] 1,000 mg PO BID 10/13/19 Review of Systems 10-point ROS is otherwise unremarkable General: As per HPI Musculoskeletal: As per HPI <Christine Fairbanks - Last Filed: 08/13/23 17:39> Physical Examination - Physical Exam General: Alert, In no apparent distress, Oriented x3, Obese HEENT: Atraumatic, Normocephalic Neck: 2+ carotid pulse no bruit Respiratory: Normal air movement Cardiovascular: Regular rate/rhythm, Normal S1 S2 Capillary refill: <2 Seconds Gastrointestinal: Soft and benign Musculoskeletal: Other (sequelae of polio, both lower extremities with shortening, multiple prior fractures with thickening, right medial ankle with ecchymosis. Tenderness to right distal knee area) Integumentary: No rashes, Other (skin abrasion to right lateral knee with minimal clear discharge) Neurological: Normal speech, Abnormal tone (lower extremities) Lymphatics: No axilla or inguinal lymphadenopathy External genitalia: Deferred Rectal: Deferred <Christine Fairbanks - Last Filed: 08/13/23 17:39> Assessment and Plan - Plan Right Tib/fib fracture Consult social work therapist for Mobility concerns Consult Dr. Raphael (from ED - recommends Knee immobilizer and f/u in one week CXR and EKG for preop wound care, knee immobilizer skin protective measures [place] 7.5 mg po prn Valium 5mg po at hs tetanus immunization HTN Lisinopril 20mg po BID DVT/GI prophylaxis scd's/protonix Discharge Plan: Home Plan to discharge in: 24 Hours - Advance Directives Does patient have a Living Will: No Does patient have a Durable POA for Healthcare: No <Christine Fairbanks Jose - Last Filed: 08/13/23 17:39> - Plan Pt seen and examined. I agree with the note by the AIRCRAFT SEAT UPHOLSTERER. Pt is a 72 yo male with past medical history of Htn who presents in the ER in the ER s/p fall at home. On admission, x-ray of the right knee shows right proximal tib/fibula fracture. ER physician consulted Orthopedic surgeon who recommended immobilization of the right leg with NWB. At bedside, pt is in NAD. A/P: Fall: Will continue fall precaution. Right proximal tib/fib fracture: Ortho is following. Will immobilize the right leg. Continue NWB pt and follow up with Orthopedic surgeon for surgery. Continue prn pain med. Htn: Continue home med. Dispo: Will consult pillowcase cleaner <Maggie Leonard - Last Filed: 08/13/23 18:11>
[2023-08-13] MEDS ORDERED: SODIUM CHLORIDE 0.9% 10ML INJ IV PRN (17:53)
[2023-08-13] MEDS: TETANUS & DIPHTHERIA TOX,ADULT 0.5 ML VIAL IMVAC ONE (18:00)
[2023-08-13 19:45] VITALS: BMI 39.5
[2023-08-13] MEDS ORDERED: MUPIROCIN 2% OINT 22GM TUBE TOP SCH (21:00)
[2023-08-13] MEDS: HYDROCODONE/APAP 7.5/325 MG TAB PO PRN (22:50)
[2023-08-13] MEDS: MUPIROCIN 2% OINT 22GM TUBE TOP SCH (22:51)
[2023-08-14 04:00] LABS: Absolute Basophils 0.1 K/uL (0-0.5); Absolute Eosinophils 0.1 K/uL (0-0.5); Absolute Lymphocytes (CBC) 1.8 K/uL (0.7-4.9); Absolute Neutrophil 5.9 K/uL (1.8-8.0); Basophils % 0.6 % (0-1.3); Eosinophils % 0.8 % (0-4.4); Hematocrit 36.5 % (39.6-49.0); Hemoglobin 12.8 g/dL (13.6-17.9); Lymphocytes % 20.5 % (15.3-44.8); MCV 85.7 fL (80-100); MPV 7.8 fL (7.6-11.3); Monocytes % 11.2 % (3.3-12.3); Neutrophils % 66.9 % (41.7-73.7); Nucleated Red Blood Cells % 0.1 % (0-0); Platelets 256 thou/uL (152-406); RBC Red Blood Cell Count 4.26 M/uL (4.33-5.43); Red Cell Distribution Width 13.5 % (12.1-15.2)
[2023-08-14 04:14] LABS: Anion Gap 10.1 mEq/L (5.0-15.0); Potassium 4.1 mEq/L (3.5-5.1)
[2023-08-14] MEDS: PANTOPRAZOLE 40 MG INJ IVP SCH (07:39)
--- NOTE | 2023-08-14 08:02 | RAD REPORT ---
EXAM DESCRIPTION: RAD - Chest Single View - 08/14/2023 5:33 am CLINICAL HISTORY: Follow up admission chest Xray Chest pain. COMPARISON: CHEST PA AND LAT 2 VIEW dated 11/04/2007; CHEST PA AND LAT 2 VIEW dated 09/08/2006 FINDINGS: Portable technique limits examination quality. There is a 7-8 mm pulmonary nodule noted in the right mid lung. This appears new since comparative ch est radiograph. The lungs are otherwise clear. The heart is mildly prominent. No displaced fractures. IMPRESSION: 7-8 mm pulmonary nodule in the right mid lung noted. CT chest would be recommended for f urther evaluation.
--- NOTE | 2023-08-14 14:30 | P.PN ---
Subjective Date of Service: 08/14/23 Chief Complaint: tib/fib fracture, difficult mobility 2nd to polio Subjective: C/O voiced (pt states he did not sleep well. He is quite a bit more comfortable with right knee immobilizer to the degree that he requested one for the left knee as well.) <Christine Fairbanks - Last Filed: 08/14/23 14:22> Date of Service: 08/14/23 <AdangissellMaggie penny Kevin - Last Filed: 08/14/23 22:45> Review of Systems 10-point ROS is otherwise unremarkable Musculoskeletal: As per HPI <Jessica Fairbanksy Jose - Last Filed: 08/14/23 14:22> Physical Examination - Vital Signs Temperature: 97.9 F Blood Pressure: 125/61 Pulse: 58 Respirations: 14 Pulse Ox (%): 97 - Physical Exam General: Alert, In no apparent distress, Oriented x3 HEENT: Atraumatic, Normocephalic Neck: JVD not distended Respiratory: Normal air movement Cardiovascular: Normal pulses, Regular rate/rhythm Capillary refill: <2 Seconds Gastrointestinal: Soft and benign Musculoskeletal: Tenderness (to right buttock, minimal ecchymosis, no breakdown, right leg feeling a bit better, left leg tender as well) Integumentary: No rashes, Other (abrasion to right lateral knee, minimal ecchymosis to right buttock) Neurological: Normal speech, Other (lower extremities with decrease strength s/p polio) Lymphatics: No axilla or inguinal lymphadenopathy External genitalia: Deferred Rectal: Deferred <MagdiChristine Garcia - Last Filed: 08/14/23 14:22> Assessment And Plan - Plan Right Tib/fib fracture Consult drug abuse social worker for Mobility concerns Consult Dr. Raphael (from ED - recommends Knee immobilizer and f/u in one week), Pt chose to consult Dr. Stover instead. Dr. Stover agreed to see patient. States he doesn't do the type of surgery required and recommended transfer. This is not an emergent transfer. Will need to eval for placement. CXR and EKG for preop wound care, knee immobilizer skin protective measures [place] 7.5 mg po prn Valium 5mg po at hs tetanus immunization HTN Lisinopril 20mg po BID DVT/GI prophylaxis scd's/protonix <Christine Fairbanks - Last Filed: 08/14/23 14:22> - Plan Pt seen and examined. I agree withe the note by the PAPER PATTERN INSPECTOR. Pt's right leg is immobilized. Will transfer pt to [facility]. Continue prn pain med. <Maggie Leonard - Last Filed: 08/14/23 22:45>
--- NOTE | 2023-08-14 16:42 | EKG ---
Test Date: 2023-08-14 Test Time: 10:06:38 Email Operations Manager: ERICA MEASUREMENT RESULTS: Intervals: Rate: 66 WA: 148 QRSD: 96 QT: 414 QTc: 434 [place]: P: 71 WA: 148 QRS: 55 T: 17 INTERPRETIVE STATEMENTS: Sinus rhythm with premature atrial complexes with aberrant conduction Low voltage QRS Nonspecific ST and T wave abnormality Abnormal ECG Compared to ECG 11/04/2007 14:12:42 Atrial premature complex(es) now present Aberrant conduction of supraventricular beat(s) now present Low QRS voltage now present ST (T wave) deviation now present Electronically Signed On 08-14-23 16:41:24 CDT by Mac Franz
[2023-08-14 20:23] VITALS: O2SAT 96
[2023-08-15 03:39] LABS: Absolute Basophils 0.1 K/uL (0-0.5); Absolute Eosinophils 0.3 K/uL (0-0.5); Absolute Neutrophil 5.5 K/uL (1.8-8.0); Basophils % 0.8 % (0-1.3); Eosinophils % 3.4 % (0-4.4); Hematocrit 35.6 % (39.6-49.0); Hemoglobin 12.2 g/dL (13.6-17.9); Lymphocytes % 22.6 % (15.3-44.8); MCH 29.2 pg (27.0-35.0); MCHC 34.1 g/dL (32.0-36.0); MCV 85.8 fL (80-100); Monocytes % 11.4 % (3.3-12.3); Neutrophils % 61.8 % (41.7-73.7); Nucleated Red Blood Cells % 0.1 % (0-0); Platelets 249 thou/uL (152-406); RBC Red Blood Cell Count 4.16 M/uL (4.33-5.43); Red Cell Distribution Width 13.6 % (12.1-15.2)
--- NOTE | 2023-08-15 08:02 | CON ---
Date of Consultation: 08/14/2023 Reason For Consultation: Right lower extremity pain. History Of Present Illness: Drew is a 72-year-old male with history of polio, poor mobility, and left lower extremity weakness, presented to the emergency room after sustaining a fall onto his bilateral lower extremities. He reports increased pain to the right lower extremity. The patient had x-rays and CAT scan that demonstrated right proximal tibia fracture. The patient was placed in a knee immobilizer and admitted to the floor for pain control and aid with mobilization. The patient does live at home alone and his right lower extremity that he uses for mobilizing. Review of Systems: As above, otherwise negative. Past Medical History: Includes polio, hypertension, prostate cancer. Past Surgical History: Multiple orthopedic procedures with polio sequelae. Social History: Lives at home. No active tobacco use. Occasional alcohol use. No drug use. Lives alone. Physical Examination: General: No apparent distress. HEENT: He is normocephalic, atraumatic. Neck: Supple. Cardiovascular: Brisk cap refill to all digits. Chest: Nonlabored breathing. Abdomen: Nondistended. Psychiatric: Responsive, responds appropriately. Musculoskeletal: Right lower extremity, moderate swelling of the right lower extremity. Compartments soft. Superficial abrasion over the anterior proximal tibia without surrounding erythema or drainage. Ankle dorsiflexion and plantar flexion without pain. No pain with passive stretch to the EHL plus dorsalis pedis pulse. Sensation grossly intact to the dorsal and plantar surface of the foot. No pain with internal or external rotation of the right hip. Left lower extremity atrophy from underlying polio plus significant tenderness to palpation over the tibia, knee, right ankle. No pain with internal or external rotation of the left hip. Diagnostic Studies: X-rays and CAT scan were reviewed, which demonstrate oblique fracture of the proximal tibial metaphysis with possible intra-articular extension, fracture extends to the tibial tuberosity with possible fragmentation. Assessment/plan: Drew is a 72-year-old male with a right proximal tibia fracture. I discussed with the patient at length his diagnosis as well as operative risks and benefits associated with operative and nonoperative treatment measures. Given the complex fracture pattern as well as possible fragmentation, recommend surgical treatment, the fracture is complex in nature given his underlying polio, likely osteoporosis, it would likely be a more complex surgery. We discussed with the patient and recommended possible transfer to [facility] and high level of care. He expressed understanding and agreed with the plan. The patient does have some swelling at this time that will likely need to come down prior to surgery. The patient does have difficulty mobilizing and he lives at home alone, so will likely have problems following up on an outpatient basis. We discussed possible transfer at this time for definitive care. The patient expressed understanding and we will discuss further with hospitalist. PO/JACOBO Voice ID: [id number] Report ID: [id number] [facility]
--- NOTE | 2023-08-15 13:38 | P.PN ---
Subjective Date of Service: 08/15/23 Chief Complaint: tib/fib fracture, difficult mobility 2nd to polio Pt is resting comfortably in bed. He denies any chest pain or SOB. Waiting for transfer to [place] for surgical repair. No other complaints. Review of Systems General: Unremarkable Eyes: Unremarkable ENT: Unremarkable Respiratory: Unremarkable Cardiovascular: Unremarkable Gastrointestinal: Unremarkable Genitourinary: Unremarkable Musculoskeletal: Leg Pain Integumentary: Unremarkable Neurological: Unremarkable Lymphatics: Unremarkable Physical Examination - Vital Signs Temperature: 97.8 F Blood Pressure: 157/70 Pulse: 60 Respirations: 18 Pulse Ox (%): 93 - Physical Exam General: Alert, In no apparent distress, Oriented x3 HEENT: Atraumatic, Normocephalic, PERRLA Neck: Supple, 2+ carotid pulse no bruit, JVD not distended Respiratory: Clear to auscultation bilaterally, Normal air movement Cardiovascular: No edema, Normal pulses, Regular rate/rhythm, Normal S1 S2 Capillary refill: <2 Seconds Gastrointestinal: Normal bowel sounds, Soft and benign, Non-distended Musculoskeletal: No clubbing, No swelling Integumentary: No rashes, No breakdown Neurological: Normal speech, Normal strength at 5/5 x4 extr, Normal tone, Sensation intact Lymphatics: No axilla or inguinal lymphadenopathy Assessment And Plan - Plan Right Tib/fib fracture: The right leg is immobilized. Dr. Raphael (from ED - recommends Knee immobilizer and f/u in one week), Pt chose to consult Dr. Stover instead. Dr. Stover agreed to see patient. States he doesn't do the type of surgery required and recommended transfer. This is not an emergent transfer. Will need to eval for placement. Continue prn pain med. Continue wound care and tetanus immunization. HTN: Lisinopril 20mg po BID Morbid Obesity: Pt was advised to lose weight. DVT ppx: lovenox GI ppx: protonix Dispo: waiting for transfer
--- NOTE | 2023-08-15 16:32 | P.DS ---
Admission Date: 08/13/23 Discharge Date: 08/15/23 Disposition: TRANSFER TO [facility] Discharge Condition: FAIR Reason for Admission: tib/fib fracture, difficult mobility 2nd to polio Brief History of Present Illness: Mr. Boles is a 72-year-old male with a past medical history of polio, the sequelae of which affected his mobility. He has had multiple surgeries on his bilateral lower extremities. He lives alone but is very high functioning with a motorized wheelchair that he transfers from to crutches and back to the chair to perform ADLs. He has a van that usually is accessible to him from his chair using crutches. Today however he slipped, causing his legs to buckle and he landed awkwardly on his folded lower extremities. On evaluation in the emergency department, he has a tib-fib fracture of the right leg. He states his right leg is the stronger of his lower extremities. He was given morphine for pain and the ER physician consulted Dr. Raphael. Dr. Raphael recommended a knee immobilizer, pain control, and follow-up in 1 week. With the increased difficulty in mobilization, it is felt unsafe to send Mr. Boles to his home alone. We will admit him for observation to allow conversation with social work for potential outpatient rehab. Hospital Course: Pt is a 72yo male with past medical history of Polio, Htn, morbid obesity who presented with right leg pain s/p fall at home. On admission, x-ray showed right proximal tibia/fibulla fracture. The ER physician consulted orthopedic surgeon and they recommended to immobilize the right leg until surgical repair. We continue prn pain med. Dr. Raphael recommended Knee immobilizer and outpt f/u in one week for surgical repair but the pt chose to consult Dr. Stover. Dr. Stover agreed to see patient.Upon further evaluation Dr. Stover recommended for pt to be transferred to [place] for surgical repair. We continued lisinopril for htn and advised pt to lose weight. Pt was in NAD prior to transfer. Vital Signs/Physical Exam: Temp Pulse Resp BP Pulse Ox 97.8 F 60 18 157/70 H 93 08/15/23 13:38 08/15/23 13:38 08/15/23 13:38 08/15/23 13:38 08/15/23 13:38 Laboratory Data at Discharge: WBC 8.90 thou/uL (4.3-10.9) 08/15/23 02:24 Hgb 12.2 g/dL (13.6-17.9) L 08/15/23 02:24 Hct 35.6 % (39.6-49.0) L 08/15/23 02:24 Plt Count 249 thou/uL (152-406) 08/15/23 02:24 Sodium 137 mEq/L (136-145) 08/15/23 02:24 Potassium 4.0 mEq/L (3.5-5.1) 08/15/23 02:24 BUN 20 mg/dL (7-18) H 08/15/23 02:24 Creatinine 0.66 mg/dL (0.70-1.30) L 08/15/23 02:24 Glucose 120 mg/dL (74-106) H 08/15/23 02:24 Home Medications: Lisinopril [Zestril] 20 mg PO BID 10/13/19 Loperamide [Imodium*] 1 mg PO BEDTIME 10/13/19 Turmeric Root Extract [Turmeric] 1,000 mg PO DAILY 10/13/19 Physician Discharge Instructions: Continue ad jumana activity. Take home meds. Follow up with PCP within 2 weeks Diet: AHA Activity: Ad jumana Followup: Sebastian Herron DO [Primary Care Provider] -
--- NOTE | 2023-08-15 18:10 | P.CNS ---
Date of Consult: 08/15/23 Chief Complaint: tib/fib fracture, difficult mobility 2nd to polio History of Present Illness: Patient admitted with complex tibial/Fib fracture due to recent fall, the intital plan was to have surgery but due to complexity, patient will need to be transferred to the medical center vs home and outpatient schedule, cardiology was consulted for preoperative clearance, patient denies having any significant cardiac history, no chest pain, no palpitations, no GARCIA, no syncope. Allergies aspirin Allergy (Verified 10/13/19 15:07) Rash Iodinated Contrast Media Allergy (Verified 10/13/19 15:04) Shortness of breath/hypotension/palpitations iodine Allergy (Verified 10/13/19 15:04) Rash Penicillins Allergy (Verified 10/13/19 15:04) Nausea/Vomiting/diarrhea Home Medications: Lisinopril [Zestril] 20 mg PO BID 10/13/19 Loperamide [Imodium*] 1 mg PO BEDTIME 10/13/19 Turmeric Root Extract [Turmeric] 1,000 mg PO DAILY 10/13/19 - Past Medical/Surgical History Diabetic: No -: polio -: HTN -: prostate ca - treated with radiation therapy. in remission -: multiple orthopedic surgeries for polio sequelae Psychosocial/ Personal History: Pt lives alone but functions well with special w/c, crutches, adapted van. He however fell while getting into his van and now has fracture of his more dominant leg - Social History Alcohol use: Yes CD- Drugs: No Caffeine use: Yes Place of Residence: Home Review of Systems 10-point ROS is otherwise unremarkable Physical Examination Temp Pulse Resp BP Pulse Ox 97.0 F 61 16 141/65 H 94 08/15/23 16:00 08/15/23 16:00 08/15/23 16:00 08/15/23 16:00 08/15/23 16:00 General: Alert, Oriented x3 HEENT: Atraumatic Neck: Supple Respiratory: Clear to auscultation bilaterally Cardiovascular: No edema, Normal S1 S2 Gastrointestinal: Normal bowel sounds - Problems (1) Encounter for pre-operative cardiovascular clearance Current Visit: Yes Status: Acute Plan: Patient with no significant cardiac history, denies having chest pain, no GARCIA, patient is getting transferred to medical center for which i advise to do medical clearance there, all patient need is an echo prior to proceeding with surgery.
[2023-08-15 22:59] VITALS: BP 154/93; TEMP 98.9
== END 2023-08-15 23:10 | disposition short-term general hospital (02) ==
LOC: ER 11:41 → ERHOLD 16:36 → 2ND 17:27
PROVIDERS: ADMIT Hospitalist; ATTEND Hospitalist
DX: S82.101A Unspecified fracture of upper end of right tibia, initial encounter for closed fracture (principal); W18.39XA Other fall on same level, initial encounter; Y93.89 Activity, other specified; Y92.019 Unspecified place in single-family (private) house as the place of occurrence of the external cause; I10 Essential (primary) hypertension; G14 Postpolio syndrome; R53.1 Weakness; R26.2 Difficulty in walking, not elsewhere classified; E66.01 Morbid (severe) obesity due to excess calories; Z88.0 Allergy status to penicillin; Z85.46 Personal history of malignant neoplasm of prostate; Z88.6 Allergy status to analgesic agent; Z91.09 Other allergy status, other than to drugs and biological substances; Z68.39 Body mass index [BMI] 39.0-39.9, adult; Z99.3 Dependence on wheelchair
CPT/HCPCS: 93005; 85025 ×2; 80048 ×2; 36415; 73700; 71045; 72170; 73562; 73552; 73590; 73610 ×2; 90714; 97110 ×2; 97161; C9113 ×2; G0378 ×5